=== PATIENT | male | born 1950 | race Caucasian/White ===

== ENCOUNTER 2017-10-16 12:05 | Observation (INO) | payer MEDICARE, OTHER ==
[2017-10-16 12:48] LABS: ADD MAN DIFF? NO
[2017-10-16 12:49] LABS: WHITE BLOOD COUNT 8.2 10^3/ul (4.8-10.8)
[2017-10-16 12:49] LABS: BASOPHILS % 0.2 % (0.0-2.0); EOSINOPHILS # 0.2 10^3/ul (0.0-0.5); EOSINOPHILS % 1.8 % (0.0-7.0); HEMATOCRIT 42.4 % (42.0-52.0); HEMOGLOBIN 14.6 g/dl (14.0-18.0); LYMPHOCYTES # 2.6 10^3/ul (0.8-2.9); LYMPHOCYTES % 32.4 % (15.0-51.0); MEAN CORPUSCULAR HEMOGLOBIN 30.9 pg (29.0-33.0); MEAN CORPUSCULAR HGB CONC 34.4 g/dl (32.0-37.0); MEAN CORPUSCULAR VOLUME 89.8 fl (82.0-101.0); MEAN PLATELET VOLUME 10.8 fl (7.4-10.4); MONOCYTE # 0.6 10^3/ul (0.3-0.9); MONOCYTES % 6.7 % (0.0-11.0); NEUTROPHIL # 4.8 10^3/ul (1.6-7.5); NEUTROPHILS % 58.5 % (39.0-77.0); PLATELET COUNT 180 10^3/UL (140-415); RED BLOOD COUNT 4.72 10^6/ul (4.70-6.10); RED CELL DISTRIBUTION WIDTH 13.2 % (11.5-14.5)
[2017-10-16 13:03] LABS: INR 1.02; PROTIME 13.5 Sec (11.9-14.9); PT RATIO 1.1
[2017-10-16 13:04] LABS: PARTIAL THROMBOPLASTIN TIME 36.3 Sec (25.0-35.0)
[2017-10-16 13:06] LABS: ANION GAP 15 (8-16); BLOOD UREA NITROGEN 13 mg/dl (7-20); CALCIUM 9.5 mg/dl (8.4-10.2); CARBON DIOXIDE 23 mmol/L (21-31); CHLORIDE 107 mmol/L (97-110); CREATININE 0.84 mg/dl (0.61-1.24); GLUCOSE 124 mg/dl (70-220); SODIUM 141 mmol/L (135-144)
[2017-10-16 13:18] LABS: B-TYPE NATRIURETIC PEPTIDE 889 PG/ML (0-125); TROPONIN-I 0.029 ng/ml (0.00-0.12)
[2017-10-16] MEDS: ASPIRIN 81 MG TAB PO (15:45)
[2017-10-16] MEDS ORDERED: ONDANSETRON 4 MG INJ IV (17:00)
[2017-10-16] MEDS ORDERED: ACETAMINOPHEN 325 MG TAB PO (17:00)
[2017-10-16 18:48] LABS: CREATINE KINASE 48 IU/L (23-200)
[2017-10-16 19:00] LABS: CK INDEX 1.9; TROPONIN-I 0.038 ng/ml (0.00-0.12)
[2017-10-16 19:04] LABS: CK-MB 0.89 ng/ml (0.0-2.4)
[2017-10-16] MEDS ORDERED: NITROGLYCERIN (SL) 0.4 MG TAB SL (20:30)
[2017-10-16] MEDS: ATORVASTATIN 80 MG TAB PO (21:40)
[2017-10-17 01:15] LABS: CREATINE KINASE 44 IU/L (23-200)
[2017-10-17 01:26] LABS: CK INDEX 2.1
[2017-10-17 01:35] LABS: CK-MB 0.91 ng/ml (0.0-2.4)
[2017-10-17 06:41] LABS: ALANINE AMINOTRANSFERASE 33 IU/L (13-69); ALBUMIN 3.9 g/dl (3.3-4.9); ALKALINE PHOSPHATASE 90 IU/L (42-121); ANION GAP 15 (8-16); ASPARTATE AMINO TRANSFERASE 29 IU/L (15-46); BILIRUBIN,INDIRECT 0.6 mg/dl (0-1.1); BILIRUBIN,TOTAL 0.6 mg/dl (0.2-1.3); BLOOD UREA NITROGEN 12 mg/dl (7-20); CALCIUM 9.3 mg/dl (8.4-10.2); CARBON DIOXIDE 23 mmol/L (21-31); CHLORIDE 107 mmol/L (97-110); CREATININE 0.84 mg/dl (0.61-1.24); GLUCOSE 104 mg/dl (70-220); POTASSIUM 4.1 mmol/L (3.5-5.1); SODIUM 141 mmol/L (135-144); TOTAL PROTEIN 6.9 g/dl (6.1-8.1); URIC ACID 6.2 mg/dl (3.1-7.9)
[2017-10-17 06:49] LABS: TROPONIN-I 0.041 ng/ml (0.00-0.12)
[2017-10-17] MEDS: ONDANSETRON (ODT) 4 MG TAB ODT (07:11)
[2017-10-17] MEDS: LISINOPRIL 10 MG TAB PO (08:46)
[2017-10-17] MEDS: ASPIRIN (EC) 81 MG TAB PO (09:36)
[2017-10-17] MEDS: ALLOPURINOL 100 MG TAB PO (09:37)
[2017-10-17] MEDS: ENOXAPARIN 40 MG/0.4 ML SYG SC (09:37)
[2017-10-17] MEDS: ATORVASTATIN 80 MG TAB PO (21:46)
[2017-10-18 05:02] LABS: ADD MAN DIFF? NO
[2017-10-18 05:03] LABS: BASOPHILS % 0.4 % (0.0-2.0); EOSINOPHILS # 0.2 10^3/ul (0.0-0.5); HEMATOCRIT 43.8 % (42.0-52.0); HEMOGLOBIN 15.4 g/dl (14.0-18.0); LYMPHOCYTES # 2.7 10^3/ul (0.8-2.9); LYMPHOCYTES % 31.7 % (15.0-51.0); MEAN CORPUSCULAR HEMOGLOBIN 31.5 pg (29.0-33.0); MEAN CORPUSCULAR HGB CONC 35.2 g/dl (32.0-37.0); MEAN CORPUSCULAR VOLUME 89.6 fl (82.0-101.0); MEAN PLATELET VOLUME 10.8 fl (7.4-10.4); MONOCYTE # 0.7 10^3/ul (0.3-0.9); MONOCYTES % 8.1 % (0.0-11.0); NEUTROPHIL # 4.9 10^3/ul (1.6-7.5); NEUTROPHILS % 57.6 % (39.0-77.0); PLATELET COUNT 173 10^3/UL (140-415); RED BLOOD COUNT 4.89 10^6/ul (4.70-6.10); RED CELL DISTRIBUTION WIDTH 13.4 % (11.5-14.5)
[2017-10-18 05:03] LABS: WHITE BLOOD COUNT 8.4 10^3/ul (4.8-10.8)
[2017-10-18 05:27] LABS: ANION GAP 15 (8-16); BLOOD UREA NITROGEN 12 mg/dl (7-20); CALCIUM 9.8 mg/dl (8.4-10.2); CARBON DIOXIDE 25 mmol/L (21-31); CHLORIDE 106 mmol/L (97-110); CREATININE 0.85 mg/dl (0.61-1.24); GLUCOSE 121 mg/dl (70-220); POTASSIUM 4.2 mmol/L (3.5-5.1); SODIUM 142 mmol/L (135-144)
[2017-10-18] MEDS: ENOXAPARIN 40 MG/0.4 ML SYG SC (09:00)
[2017-10-18] MEDS: ALLOPURINOL 100 MG TAB PO (10:00)
[2017-10-18] MEDS: REGADENOSON 0.4 MG/5 ML SYG (12:14)
[2017-10-18] MEDS: ASPIRIN (EC) 81 MG TAB PO (13:11)
[2017-10-18] MEDS: LISINOPRIL 10 MG TAB PO (13:14)
[2017-10-18] MEDS: ATORVASTATIN 80 MG TAB PO (21:05)
[2017-10-19 04:41] LABS: ADD MAN DIFF? NO
[2017-10-19 04:43] LABS: WHITE BLOOD COUNT 9.2 10^3/ul (4.8-10.8)
[2017-10-19 04:43] LABS: BASOPHILS % 0.4 % (0.0-2.0); EOSINOPHILS # 0.2 10^3/ul (0.0-0.5); EOSINOPHILS % 1.9 % (0.0-7.0); HEMATOCRIT 42.4 % (42.0-52.0); HEMOGLOBIN 14.8 g/dl (14.0-18.0); LYMPHOCYTES # 3.5 10^3/ul (0.8-2.9); LYMPHOCYTES % 37.4 % (15.0-51.0); MEAN CORPUSCULAR HEMOGLOBIN 31.2 pg (29.0-33.0); MEAN CORPUSCULAR HGB CONC 34.9 g/dl (32.0-37.0); MEAN CORPUSCULAR VOLUME 89.3 fl (82.0-101.0); MEAN PLATELET VOLUME 10.6 fl (7.4-10.4); MONOCYTE # 0.8 10^3/ul (0.3-0.9); MONOCYTES % 8.3 % (0.0-11.0); NEUTROPHIL # 4.8 10^3/ul (1.6-7.5); NEUTROPHILS % 51.8 % (39.0-77.0); PLATELET COUNT 168 10^3/UL (140-415); RED BLOOD COUNT 4.75 10^6/ul (4.70-6.10); RED CELL DISTRIBUTION WIDTH 13.2 % (11.5-14.5)
[2017-10-19 05:07] LABS: ANION GAP 16 (8-16); BLOOD UREA NITROGEN 14 mg/dl (7-20); CALCIUM 9.3 mg/dl (8.4-10.2); CARBON DIOXIDE 24 mmol/L (21-31); CHLORIDE 106 mmol/L (97-110); CREATININE 0.85 mg/dl (0.61-1.24); GLUCOSE 113 mg/dl (70-220); POTASSIUM 4.4 mmol/L (3.5-5.1); SODIUM 142 mmol/L (135-144)
[2017-10-19] MEDS ORDERED: [UNRECOGNIZED DRUG - REMARK] XX (08:30)
[2017-10-19] MEDS: FUROSEMIDE 20 MG TAB PO (09:19)
[2017-10-19] MEDS: ASPIRIN (EC) 81 MG TAB PO (09:19)
[2017-10-19] MEDS: ALLOPURINOL 100 MG TAB PO (09:20)
[2017-10-19] MEDS: LISINOPRIL 10 MG TAB PO (09:20)
[2017-10-19] MEDS: ENOXAPARIN 40 MG/0.4 ML SYG SC (09:28)
[2017-10-19] MEDS: SPIRONOLACTONE 25 MG TAB PO (16:53)
[2017-10-19] MEDS: ATORVASTATIN 80 MG TAB PO (21:41)
[2017-10-20] MEDS: ASPIRIN (EC) 81 MG TAB PO (09:22)
[2017-10-20] MEDS: FUROSEMIDE 20 MG TAB PO (09:22)
[2017-10-20] MEDS: ALLOPURINOL 100 MG TAB PO (09:23)
[2017-10-20] MEDS: LISINOPRIL 10 MG TAB PO (09:23)
[2017-10-20] MEDS: SPIRONOLACTONE 25 MG TAB PO (09:24)
[2017-10-20] MEDS: ENOXAPARIN 40 MG/0.4 ML SYG SC (09:29)
== END 2017-10-20 16:27 | disposition home or self-care (01) ==
LOC: MS3 16:49 → E/R 12:05
DX: R07.89 Other chest pain (principal); I25.10 Atherosclerotic heart disease of native coronary artery without angina pectoris; Z95.1 Presence of aortocoronary bypass graft; Z95.5 Presence of coronary angioplasty implant and graft; I11.0 Hypertensive heart disease with heart failure; I50.22 Chronic systolic (congestive) heart failure; E78.5 Hyperlipidemia, unspecified; R20.0 Anesthesia of skin; R42 Dizziness and giddiness; I42.9 Cardiomyopathy, unspecified; I35.0 Nonrheumatic aortic (valve) stenosis; Z79.82 Long term (current) use of aspirin
CPT/HCPCS: 36415; 70450; 70551; 71045; 78452; 80048; 80053; 82550; 82553; 83880; 84484; 84560; 85025; 85610; 85730; 93005; 93017; 93306; 93880; 96372; 99217; 99285-25

== ENCOUNTER 2018-01-11 07:14 | Day surgery (SDC) | payer MEDICARE, OTHER ==
[~2018-01-11 07:14] MED LIST: DIAZEPAM 5 MG TAB PO; DIPHENHYDRAMINE 50 MG CAP PO; FAMOTIDINE 20 MG TAB PO; SOD CHLORIDE 0.45% 1,000 ML IV
[2018-01-11] MEDS ORDERED: HEPARIN 1000 UNITS/ML 10 ML INJ (08:50)
[2018-01-11] MEDS ORDERED: LIDOCAINE 1% (MDV) 20 ML INJ (08:50)
[2018-01-11] MEDS ORDERED: FENTAnyl 50 MCG/ML VIAL (08:50)
[2018-01-11] MEDS ORDERED: VERAPAMIL 5 MG INJ (08:50)
[2018-01-11] MEDS ORDERED: IODIXANOL LOCM 100 ML BTL (08:50)
[2018-01-11] MEDS ORDERED: MIDAZOLAM 1 MG/ML 2 ML INJ (08:50)
[2018-01-11 08:51] LABS: ADD MAN DIFF? NO
[2018-01-11] MEDS ORDERED: NITROGLYCERIN (IC) 100 MCG/ML INJ (08:51)
[2018-01-11] MEDS ORDERED: SOD CHLORIDE 0.9% 500 ML (08:52)
[2018-01-11 08:54] LABS: WHITE BLOOD COUNT 7.7 10^3/ul (4.8-10.8)
[2018-01-11 08:54] LABS: BASOPHILS % 0.4 % (0.0-2.0); EOSINOPHILS # 0.2 10^3/ul (0.0-0.5); EOSINOPHILS % 2.5 % (0.0-7.0); HEMATOCRIT 41.7 % (42.0-52.0); HEMOGLOBIN 14.3 g/dl (14.0-18.0); LYMPHOCYTES # 2.6 10^3/ul (0.8-2.9); LYMPHOCYTES % 33.5 % (15.0-51.0); MEAN CORPUSCULAR HEMOGLOBIN 30.4 pg (29.0-33.0); MEAN CORPUSCULAR HGB CONC 34.3 g/dl (32.0-37.0); MEAN CORPUSCULAR VOLUME 88.7 fl (82.0-101.0); MEAN PLATELET VOLUME 11.2 fl (7.4-10.4); MONOCYTE # 0.6 10^3/ul (0.3-0.9); NEUTROPHIL # 4.3 10^3/ul (1.6-7.5); NEUTROPHILS % 55.3 % (39.0-77.0); PLATELET COUNT 164 10^3/UL (140-415); RED CELL DISTRIBUTION WIDTH 13.1 % (11.5-14.5)
[2018-01-11 09:15] LABS: INR 1.06; PROTIME 13.9 Sec (11.9-14.9); PT RATIO 1.1
[2018-01-11 09:23] LABS: ANION GAP 17 (8-16); CARBON DIOXIDE 23 mmol/L (21-31); CHLORIDE 109 mmol/L (97-110); CHOL/HDL RATIO 3.9 RATIO; CHOLESTEROL 138 mg/dl (100-200); GLUCOSE 117 mg/dl (70-220); HDL CHOLESTEROL 35 mg/dl (30-78); LDL CHOLESTEROL,CALCULATED 73 mg/dl; TRIGLYCERIDES 150 mg/dl (0-149)
[2018-01-11 09:24] LABS: BLOOD UREA NITROGEN 12 mg/dl (7-20); CALCIUM 9.7 mg/dl (8.4-10.2); CREATININE 0.79 mg/dl (0.61-1.24); POTASSIUM 4.3 mmol/L (3.5-5.1); SODIUM 145 mmol/L (135-144)
[2018-01-11 09:35] LABS: PARTIAL THROMBOPLASTIN TIME 37.9 Sec (25.0-35.0)
[2018-01-11] MEDS ORDERED: ACETAMINOPHEN 325 MG TAB PO (11:30)
[2018-01-11] MEDS ORDERED: AL HYDROX/MG HYDROX/SIMETH 30 ML CUP PO (11:30)
[2018-01-11] MEDS ORDERED: ONDANSETRON 4 MG INJ IV (11:30)
[2018-01-11] MEDS: SOD CHLORIDE 0.9% 1,000 ML IV (12:11)
[2018-01-11] MEDS: morphine 2 MG INJ IV (12:53)
== END 2018-01-11 16:00 | disposition home or self-care (01) ==
LOC: SDS 07:14
DX: I25.10 Atherosclerotic heart disease of native coronary artery without angina pectoris (principal); I10 Essential (primary) hypertension; E78.5 Hyperlipidemia, unspecified; I35.0 Nonrheumatic aortic (valve) stenosis; I42.9 Cardiomyopathy, unspecified
CPT/HCPCS: 71045; 80048; 80061; 85025; 85610; 85730; 93005; 93459; 93461

== ENCOUNTER 2018-02-02 07:16 | Day surgery (SDC) | payer MEDICARE, OTHER ==
[~2018-02-02 07:16] MED LIST changes: -SOD CHLORIDE 0.45% 1,000 ML IV
[2018-02-02 08:12] LABS: ADD MAN DIFF? NO
[2018-02-02 08:14] LABS: WHITE BLOOD COUNT 9.2 10^3/ul (4.8-10.8)
[2018-02-02 08:14] LABS: BASOPHILS % 0.4 % (0.0-2.0); EOSINOPHILS # 0.2 10^3/ul (0.0-0.5); EOSINOPHILS % 2.1 % (0.0-7.0); HEMOGLOBIN 15.1 g/dl (14.0-18.0); LYMPHOCYTES # 2.6 10^3/ul (0.8-2.9); LYMPHOCYTES % 28.3 % (15.0-51.0); MEAN CORPUSCULAR HEMOGLOBIN 30.6 pg (29.0-33.0); MEAN CORPUSCULAR HGB CONC 34.3 g/dl (32.0-37.0); MEAN CORPUSCULAR VOLUME 89.2 fl (82.0-101.0); MEAN PLATELET VOLUME 10.7 fl (7.4-10.4); MONOCYTE # 0.8 10^3/ul (0.3-0.9); MONOCYTES % 8.2 % (0.0-11.0); NEUTROPHIL # 5.6 10^3/ul (1.6-7.5); NEUTROPHILS % 60.8 % (39.0-77.0); PLATELET COUNT 145 10^3/UL (140-415); RED BLOOD COUNT 4.93 10^6/ul (4.70-6.10); RED CELL DISTRIBUTION WIDTH 13.7 % (11.5-14.5)
[2018-02-02] MEDS ORDERED: LIDOCAINE 1% (MDV) 20 ML INJ (08:35)
[2018-02-02 08:37] LABS: ANION GAP 14 (8-16); CARBON DIOXIDE 24 mmol/L (21-31); CHLORIDE 109 mmol/L (97-110); GLUCOSE 126 mg/dl (70-220)
[2018-02-02 08:44] LABS: INR 1.02; PROTIME 13.5 Sec (11.9-14.9); PT RATIO 1.1
[2018-02-02 08:45] LABS: PARTIAL THROMBOPLASTIN TIME 34.2 Sec (25.0-35.0)
[2018-02-02] MEDS ORDERED: IODIXANOL LOCM 100 ML BTL (08:45)
[2018-02-02] MEDS ORDERED: FENTAnyl 50 MCG/ML VIAL (08:46)
[2018-02-02] MEDS ORDERED: MIDAZOLAM 1 MG/ML 2 ML INJ (08:46)
[2018-02-02 08:51] LABS: BLOOD UREA NITROGEN 15 mg/dl (7-20); CALCIUM 9.4 mg/dl (8.4-10.2); CREATININE 0.87 mg/dl (0.61-1.24); POTASSIUM 4.5 mmol/L (3.5-5.1); SODIUM 142 mmol/L (135-144)
[2018-02-02 09:46] LABS: CHOLESTEROL 169 mg/dl (100-200)
[2018-02-02 09:46] LABS: CHOL/HDL RATIO 3.9 RATIO; HDL CHOLESTEROL 43 mg/dl (30-78); LDL CHOLESTEROL,CALCULATED 93 mg/dl; TRIGLYCERIDES 165 mg/dl (0-149)
[2018-02-02] MEDS ORDERED: IODIXANOL LOCM 50 ML BTL (10:35)
[2018-02-02] MEDS ORDERED: BIVALIRUDIN 250MG /NS 50 ML 50 ML IVPB (10:35)
[2018-02-02] MEDS ORDERED: TICAGRELOR 90 MG TABLET (10:42)
[2018-02-02] MEDS ORDERED: NITROGLYCERIN (IC) 100 MCG/ML INJ (10:46)
[2018-02-02] MEDS ORDERED: ACETAMINOPHEN 325 MG TAB PO (11:00)
[2018-02-02] MEDS ORDERED: morphine 2 MG INJ IV (11:00)
[2018-02-02] MEDS ORDERED: AL HYDROX/MG HYDROX/SIMETH 30 ML CUP PO (11:00)
[2018-02-02] MEDS ORDERED: ONDANSETRON 4 MG INJ IV (11:00)
[2018-02-02] MEDS ORDERED: OXYCODONE/ACETAMINOPHEN (5/325) TAB PO (11:00)
[2018-02-02] MEDS: SOD CHLORIDE 0.45% 1,000 ML IV (12:00)
[2018-02-02] MEDS: SOD CHLORIDE 0.9% 1,000 ML IV (12:12)
[2018-02-02] MEDS ORDERED: ZOLPIDEM 5 MG TAB PO (21:00)
[2018-02-02] MEDS: TICAGRELOR 90 MG TABLET PO (21:26)
[2018-02-02] MEDS: ATORVASTATIN 80 MG TAB PO (21:26)
[2018-02-03 04:53] LABS: ADD MAN DIFF? NO
[2018-02-03 04:55] LABS: WHITE BLOOD COUNT 8.2 10^3/ul (4.8-10.8)
[2018-02-03 04:55] LABS: BASOPHILS % 0.4 % (0.0-2.0); EOSINOPHILS # 0.2 10^3/ul (0.0-0.5); EOSINOPHILS % 2.2 % (0.0-7.0); HEMATOCRIT 42.2 % (42.0-52.0); HEMOGLOBIN 14.5 g/dl (14.0-18.0); LYMPHOCYTES # 2.3 10^3/ul (0.8-2.9); LYMPHOCYTES % 27.8 % (15.0-51.0); MEAN CORPUSCULAR HEMOGLOBIN 30.9 pg (29.0-33.0); MEAN CORPUSCULAR HGB CONC 34.4 g/dl (32.0-37.0); MEAN PLATELET VOLUME 11.1 fl (7.4-10.4); MONOCYTE # 0.7 10^3/ul (0.3-0.9); MONOCYTES % 8.6 % (0.0-11.0); NEUTROPHILS % 60.8 % (39.0-77.0); PLATELET COUNT 140 10^3/UL (140-415); POSITIVE DIFF @See below; RED BLOOD COUNT 4.69 10^6/ul (4.70-6.10); RED CELL DISTRIBUTION WIDTH 13.5 % (11.5-14.5)
[2018-02-03 05:13] LABS: ANION GAP 14 (8-16); BLOOD UREA NITROGEN 13 mg/dl (7-20); CALCIUM 9.6 mg/dl (8.4-10.2); CARBON DIOXIDE 25 mmol/L (21-31); CHLORIDE 108 mmol/L (97-110); CREATININE 0.89 mg/dl (0.61-1.24); GLUCOSE 125 mg/dl (70-220); POTASSIUM 4.5 mmol/L (3.5-5.1); SODIUM 142 mmol/L (135-144)
[2018-02-03] MEDS: FUROSEMIDE 20 MG TAB PO (06:17)
[2018-02-03] MEDS: ALLOPURINOL 100 MG TAB PO (08:33)
[2018-02-03] MEDS: ASPIRIN (EC) 81 MG TAB PO (08:33)
[2018-02-03] MEDS: LISINOPRIL 10 MG TAB PO (08:33)
[2018-02-03] MEDS ORDERED: NON-FORMULARY/PATIENT OWN MED (Eplerenone (Inspra) 25 MG) PO (09:00)
[2018-02-03] MEDS ORDERED: TICAGRELOR 90 MG TABLET PO (21:00)
[2018-02-04] MEDS ORDERED: CLOPIDOGREL 75 MG TAB PO (09:00)
== END 2018-02-03 18:20 | disposition home or self-care (01) ==
LOC: SDS 07:16 → ICU 11:47
DX: I25.10 Atherosclerotic heart disease of native coronary artery without angina pectoris (principal); I10 Essential (primary) hypertension; E78.5 Hyperlipidemia, unspecified
CPT/HCPCS: 71045; 80048; 80061; 85025; 85610; 85730; 87081; 93005; 93460

== ENCOUNTER 2018-02-06 13:34 | Day surgery (SDC) | payer MEDICARE, OTHER ==
[2018-02-06] MEDS ORDERED: PROPOFOL 60 ML (15:35)
== END 2018-02-06 16:30 | disposition home or self-care (01) ==
LOC: GIL 13:34
DX: K92.1 Melena (principal); D12.5 Benign neoplasm of sigmoid colon; K64.8 Other hemorrhoids; K57.90 Diverticulosis of intestine, part unspecified, without perforation or abscess without bleeding; I10 Essential (primary) hypertension; I25.10 Atherosclerotic heart disease of native coronary artery without angina pectoris; E78.5 Hyperlipidemia, unspecified
CPT/HCPCS: 45380; 88309